=== PATIENT | male | born 1955 | race Caucasian/White ===

== ENCOUNTER 2018-05-09 01:41 | Emergency (ER) | payer MEDICAID ==
[~2018-05-09] VITALS: Ht 175.3 cm; Wt 113.6 kg
[~2018-05-09 01:41] MED LIST: CHLO25CA10 PO; NO HOME MEDS; ONDA8TAB13 PO; ZOF4T PO
[2018-05-09] MEDS ORDERED: meclizine 12.5mg tablet PO ONE (02:00)
[2018-05-09] MEDS ORDERED: LORazepam 2 mg/ml vial IV ONE (02:00)
[2018-05-09 02:53] LABS: BASOPHILS % (AUTO) 0.7 % (0-1); EOSINOPHILS # (AUTO) 0.2 X10'3 (0-0.9); EOSINOPHILS % (AUTO) 3.9 % (0-6); HEMATOCRIT 45.2 % (42.0-52.0); HEMOGLOBIN 15.4 g/dl (14.0-17.9); LYMPHOCYTES # (AUTO) 2.2 X10'3 (1.1-4.8); MEAN CORPUSCULAR HEMOGLOBIN 31.1 PG (27.0-31.0); MEAN CORPUSCULAR HGB CONC 34.1 % (33.0-36.5); MEAN CORPUSCULAR VOLUME 91.2 FL (78-98); MEAN PLATELET VOLUME 6.9 FL (7.4-10.4); MONOCYTES # (AUTO) 0.4 X10'3 (0-0.9); MONOCYTES % (AUTO) 7.7 % (2-12); NEUTROPHILS # (AUTO) 2.4 X10'3 (1.8-7.7); NEUTROPHILS % (AUTO) 45.7 % (42-75); PLATELET COUNT 218 X10'3 (140-440); RED BLOOD COUNT 4.96 X10'6 (4.70-6.10); RED CELL DISTRIBUTION WIDTH 12.9 % (11.5-14.5); WHITE BLOOD COUNT 5.2 X10'3 (4.5-11.0)
[2018-05-09 02:57] LABS: ALANINE AMINOTRANSFERASE 37 U/L (12-78); ALBUMIN 3.2 G/DL (3.4-5.0); ALKALINE PHOSPHATASE 63 IU/L (46-116); ANION GAP 9 (8-16); ASPARTATE AMINO TRANSFERASE 20 U/L (10-37); BILIRUBIN,TOTAL 0.5 MG/DL (0.1-1.0); BLOOD UREA NITROGEN 14 MG/DL (7-18); BUN/CREATININE RATIO 18.7 (5.4-32.0); CALCIUM 8.5 MG/DL (8.5-10.1); CHLORIDE 105 MMOL/L (99-107); CREATININE 0.75 MG/DL (0.60-1.10); GLUCOSE 137 MG/DL (70-104); POTASSIUM 3.8 MMOL/L (3.5-5.1); SODIUM 140 MMOL/L (135-145); TOTAL PROTEIN 6.4 G/DL (6.4-8.2); eGFR > 90 ML/MIN
[2018-05-09 03:01] LABS: PARTIAL THROMBOPLASTIN TIME 22 SECONDS (22-32); PROTHROMBIN TIME 10.6 SECONDS (9.0-12.0)
[2018-05-09] MEDS ORDERED: MECL-111 PO (03:32)
[2018-05-09 03:50] VITALS: BP 142/86
== END 2018-05-09 03:53 | disposition home or self-care (01) ==
LOC: ER 01:42
DX: R42 Dizziness and giddiness (principal); R11.2 Nausea with vomiting, unspecified; I10 Essential (primary) hypertension; G89.29 Other chronic pain; Z87.442 Personal history of urinary calculi; Z56.0 Unemployment, unspecified; Z98.890 Other specified postprocedural states
CPT/HCPCS: 36415; 70450; 71045; 80053; 84484; 85025; 85610; 85730; 93005; 96374; 99285; J2060; J8597

== ENCOUNTER 2019-01-12 08:39 | Inpatient (IN) | payer MEDICAID ==
[~2019-01-12] VITALS: Ht 175.3 cm; Wt 114.1 kg
[~2019-01-12 08:39] MED LIST changes: +MECL-111 PO
[2019-01-12] MEDS ORDERED: enoxaparin 100mg/ml syringe SUBCUT ONE (09:10)
[2019-01-12 09:14] LABS: BASOPHILS % (AUTO) 0.7 % (0-1); EOSINOPHILS # (AUTO) 0.2 X10'3 (0-0.9); EOSINOPHILS % (AUTO) 3.6 % (0-6); HEMATOCRIT 48.7 % (42.0-52.0); HEMOGLOBIN 16.8 g/dl (14.0-17.9); LYMPHOCYTES # (AUTO) 1.4 X10'3 (1.1-4.8); MEAN CORPUSCULAR HEMOGLOBIN 32.3 PG (27.0-31.0); MEAN CORPUSCULAR HGB CONC 34.5 g/dL (33.0-36.5); MEAN CORPUSCULAR VOLUME 93.5 FL (78-98); MONOCYTES # (AUTO) 0.6 X10'3 (0-0.9); NEUTROPHILS # (AUTO) 3.5 X10'3 (1.8-7.7); NEUTROPHILS % (AUTO) 60.7 % (42-75); PLATELET COUNT 213 X10'3 (140-440); RED BLOOD COUNT 5.21 X10'6 (4.70-6.10); RED CELL DISTRIBUTION WIDTH 13.6 % (11.5-14.5); WHITE BLOOD COUNT 5.8 X10'3 (4.5-11.0)
[2019-01-12] MEDS ORDERED: enoxaparin 30mg/0.3ml syringe SUBCUT ONE (09:15)
[2019-01-12] MEDS ORDERED: enoxaparin 80mg/0.8ml syringe SUBCUT ONE (09:15)
[2019-01-12 09:21] LABS: INR 1.1 INR; PARTIAL THROMBOPLASTIN TIME 26 SECONDS (22-32)
[2019-01-12 09:24] LABS: ALANINE AMINOTRANSFERASE 43 U/L (12-78); ALBUMIN 3.5 G/DL (3.4-5.0); ALBUMIN/GLOBULIN RATIO 0.9 (1.1-1.5); ALKALINE PHOSPHATASE 58 IU/L (46-116); ANION GAP 9 (8-16); ASPARTATE AMINO TRANSFERASE 32 U/L (10-37); BILIRUBIN,TOTAL 0.5 MG/DL (0.1-1.0); BLOOD UREA NITROGEN 10 MG/DL (7-18); BUN/CREATININE RATIO 10.6 (5.4-32.0); CHLORIDE 105 MMOL/L (99-107); CREATININE 0.94 MG/DL (0.60-1.10); GLUCOSE 114 MG/DL (70-104); POTASSIUM 4.2 MMOL/L (3.5-5.1); SODIUM 141 MMOL/L (135-145); TOTAL CARBON DIOXIDE 27.4 MMOL/L (24-32); TOTAL PROTEIN 7.3 G/DL (6.4-8.2); eGFR 82 ML/MIN
[2019-01-12] MEDS ORDERED: iohexol 350MG/ML 100ml bottle IV ONE (09:37)
--- NOTE | 2019-01-12 09:48 | NUR ---
PT TO CT VIA CHLOE
[2019-01-12 11:14] LABS: D-DIMER 10.75 MG/L FEU (0-0.50)
[2019-01-12] MEDS ORDERED: magnesium hydroxide 30ml (MOM) UD suspension PO PRN (11:25)
[2019-01-12] MEDS ORDERED: ondansetron/PF 4mg/2ml inj IV PRN (11:25)
[2019-01-12] MEDS ORDERED: acetaminophen 325mg tablet PO PRN (11:25)
[2019-01-12] MEDS ORDERED: mag hydrox/Alum hydrox/simeth 30ml oral suspension PO PRN (11:25)
[2019-01-12] MEDS ORDERED: morphine 2 MG/ML inj. syringe IV PRN (11:25)
--- NOTE | 2019-01-12 12:07 | NUR ---
Patient in room . I have received report from Sigrid CALDWELL and had the opportunity to ask questions and assume patient care.
[2019-01-12 13:33] VITALS: BP 148/91
[2019-01-12 15:00] VITALS: BP 139/96
[2019-01-12 18:00] VITALS: BP 151/94
[2019-01-12] MEDS: rivaroxaban 15mg tablet PO SCH (19:23)
[2019-01-12 22:00] VITALS: BP 125/88
[2019-01-13] VITALS (7 sets, daily range): BP systolic 118–154; BP diastolic 82–102
[2019-01-13 05:22] LABS: BASOPHILS # (AUTO) 0.1 X10'3 (0-0.2); EOSINOPHILS # (AUTO) 0.3 X10'3 (0-0.9); EOSINOPHILS % (AUTO) 5.8 % (0-6); HEMATOCRIT 45.3 % (42.0-52.0); HEMOGLOBIN 15.5 g/dl (14.0-17.9); LYMPHOCYTES # (AUTO) 1.6 X10'3 (1.1-4.8); LYMPHOCYTES % (AUTO) 28.1 % (21-51); MEAN CORPUSCULAR HEMOGLOBIN 32.1 PG (27.0-31.0); MEAN CORPUSCULAR HGB CONC 34.1 g/dL (33.0-36.5); MEAN CORPUSCULAR VOLUME 93.9 FL (78-98); MEAN PLATELET VOLUME 7.1 FL (7.4-10.4); MONOCYTES # (AUTO) 0.6 X10'3 (0-0.9); MONOCYTES % (AUTO) 10.6 % (2-12); NEUTROPHILS % (AUTO) 54.5 % (42-75); PLATELET COUNT 207 X10'3 (140-440); RED BLOOD COUNT 4.83 X10'6 (4.70-6.10); RED CELL DISTRIBUTION WIDTH 13.5 % (11.5-14.5); WHITE BLOOD COUNT 5.6 X10'3 (4.5-11.0)
[2019-01-13 05:36] LABS: ALBUMIN 2.9 G/DL (3.4-5.0); ANION GAP 8 (8-16); BLOOD UREA NITROGEN 14 MG/DL (7-18); BUN/CREATININE RATIO 16.3 (5.4-32.0); CALCIUM 8.6 MG/DL (8.5-10.1); CHLORIDE 106 MMOL/L (99-107); CREATININE 0.86 MG/DL (0.60-1.10); GLUCOSE 120 MG/DL (70-104); POTASSIUM 3.8 MMOL/L (3.5-5.1); SODIUM 141 MMOL/L (135-145); TOTAL CARBON DIOXIDE 27.4 MMOL/L (24-32); eGFR 90 ML/MIN
--- NOTE | 2019-01-13 06:20 | NUR ---
Problems reprioritized. Patient report given, questions answered & plan of care reviewed with PAULETTE Alarcon. Addendum: 01/13/19 at 0620 by Daphne Nair RN Amended: Links added.
--- NOTE | 2019-01-13 06:37 | NUR ---
Patient in room PCU 3014A. I have received report from PAULETTE Serna and had the opportunity to ask questions and assume patient care.
[2019-01-13] MEDS: rivaroxaban 15mg tablet PO SCH ×2 (07:30→19:07)
[2019-01-13] MEDS: HYDROcodone/acetaminophen 5mg/325mg tablet PO PRN ×2 (07:35→19:06)
--- NOTE | 2019-01-13 10:14 | NUR ---
Per Dr Clements, patient is able to ambulate around unit as tolerated with strict instructions to return to room as soon as he starts to feel winded or SOB
[2019-01-13] MEDS: morphine 2 MG/ML inj. syringe IV PRN ×3 (12:30→20:58)
--- NOTE | 2019-01-13 18:02 | NUR ---
Problems reprioritized. Patient report given, questions answered & plan of care reviewed with Sena CALDWELL. Patient is resting in bed and in no acute distress.
[2019-01-14] MEDS: morphine 2 MG/ML inj. syringe IV PRN ×2 (01:16→05:39)
[2019-01-14 03:00] VITALS: BP 149/85
[2019-01-14 06:00] VITALS: BP 146/84
[2019-01-14 06:08] LABS: BASOPHILS # (AUTO) 0.1 X10'3 (0-0.2); EOSINOPHILS # (AUTO) 0.3 X10'3 (0-0.9); EOSINOPHILS % (AUTO) 6.1 % (0-6); HEMATOCRIT 43.2 % (42.0-52.0); HEMOGLOBIN 14.8 g/dl (14.0-17.9); LYMPHOCYTES # (AUTO) 1.7 X10'3 (1.1-4.8); MEAN CORPUSCULAR HEMOGLOBIN 31.9 PG (27.0-31.0); MEAN CORPUSCULAR HGB CONC 34.1 g/dL (33.0-36.5); MEAN CORPUSCULAR VOLUME 93.5 FL (78-98); MEAN PLATELET VOLUME 7.3 FL (7.4-10.4); MONOCYTES # (AUTO) 0.5 X10'3 (0-0.9); MONOCYTES % (AUTO) 10.1 % (2-12); NEUTROPHILS # (AUTO) 2.7 X10'3 (1.8-7.7); NEUTROPHILS % (AUTO) 50.8 % (42-75); PLATELET COUNT 195 X10'3 (140-440); RED BLOOD COUNT 4.62 X10'6 (4.70-6.10); RED CELL DISTRIBUTION WIDTH 13.3 % (11.5-14.5); WHITE BLOOD COUNT 5.3 X10'3 (4.5-11.0)
--- NOTE | 2019-01-14 06:29 | NUR ---
Problems reprioritized. Patient report given, questions answered & plan of care reviewed with Emmy CALDWELL
--- NOTE | 2019-01-14 06:39 | NUR ---
Patient in room PCU 3025. I have received report from Sena CALDWELL and had the opportunity to ask questions and assume patient care. Patient awake in bed. O2 sat 95% on RA. In no acute distress. Will continue to monitor.
[2019-01-14 06:42] LABS: ALBUMIN 2.9 G/DL (3.4-5.0); ANION GAP 8 (8-16); BLOOD UREA NITROGEN 14 MG/DL (7-18); BUN/CREATININE RATIO 18.7 (5.4-32.0); CALCIUM 8.5 MG/DL (8.5-10.1); CHLORIDE 105 MMOL/L (99-107); CREATININE 0.75 MG/DL (0.60-1.10); GLUCOSE 105 MG/DL (70-104); POTASSIUM 3.9 MMOL/L (3.5-5.1); SODIUM 138 MMOL/L (135-145); TOTAL CARBON DIOXIDE 25.1 MMOL/L (24-32); eGFR > 90 ML/MIN
[2019-01-14] MEDS ORDERED: RIVA15TA PO (08:47)
[2019-01-14] MEDS: rivaroxaban 15mg tablet PO SCH (08:51)
[2019-01-14 11:00] VITALS: BP 128/85
--- NOTE | 2019-01-14 11:10 | NUR ---
Patient stable for discharger per MD orders. All discharge instructions reviewed with patient and all questions answered. New prescriptions delivered by [facility]. Patient educated on signs and symptoms of bleeding risk while on anticoagulation therapy. Patient to follow up with PCP in 2 weeks. Telemetry monitoring discontinued. PIV discontinued and cannula intact. All patient belongings and bedside delivery sent with patient in private vehicle to home. Patient wheeled to lobby by [facility].
[2019-01-15 09:28] LABS: ANTITHROMBIN ACTIVITY 128 % (75-135); ANTITHROMBIN ANTIGEN 69 % (72-124)
[2019-01-15 11:20] LABS: PROTEIN S, FREE 101 % (57-157); PROTEIN S, TOTAL 72 % (60-150)
== END 2019-01-14 11:09 | disposition home or self-care (01) | DRG 134 ==
LOC: ER 08:40 → EDBEDREQ 11:51 → PCU 3S 12:52
PROVIDERS: ADMIT Internal Medicine; ATTEND Internal Medicine
DX: I26.09 Other pulmonary embolism with acute cor pulmonale (principal); J96.01 Acute respiratory failure with hypoxia; G89.29 Other chronic pain; M54.9 Dorsalgia, unspecified; I10 Essential (primary) hypertension; K44.9 Diaphragmatic hernia without obstruction or gangrene; D68.59 Other primary thrombophilia; E66.9 Obesity, unspecified; Z68.37 Body mass index [BMI] 37.0-37.9, adult; Z79.01 Long term (current) use of anticoagulants; Z87.442 Personal history of urinary calculi
CPT/HCPCS: 36415; 71045; 71275; 80048; 80053; 81479; 83880; 83891; 83894; 83898; 84484; 85025; 85300; 85301; 85303; 85305; 85306; 85379; 85610; 85730; 86146; 86147; 87070; 93005; 93306; 96372; 99285; G0378; J1650; J2270; Q9967

== ENCOUNTER 2020-08-25 15:53 | Observation (INO) | payer MEDICAID ==
[~2020-08-25] VITALS: Ht 175.3 cm; Wt 98.9 kg
[~2020-08-25 15:53] MED LIST changes: -CHLO25CA10 PO; -MECL-111 PO; -NO HOME MEDS; -ONDA8TAB13 PO; +RIVA15TA PO; -ZOF4T PO
[2020-08-25 17:01] LABS: BASOPHILS % (AUTO) 1.3 % (0-1); EOSINOPHILS # (AUTO) 0.1 X10'3 (0-0.9); EOSINOPHILS % (AUTO) 1.6 % (0-6); HEMATOCRIT 45.9 % (42.0-52.0); HEMOGLOBIN 15.8 g/dl (14.0-17.9); LYMPHOCYTES # (AUTO) 1.3 X10'3 (1.1-4.8); LYMPHOCYTES % (AUTO) 35.4 % (21-51); MEAN CORPUSCULAR HEMOGLOBIN 35.1 PG (27.0-31.0); MEAN CORPUSCULAR HGB CONC 34.3 g/dL (33.0-36.5); MEAN CORPUSCULAR VOLUME 102.2 FL (78-98); MEAN PLATELET VOLUME 6.7 FL (7.4-10.4); MONOCYTES # (AUTO) 0.3 X10'3 (0-0.9); MONOCYTES % (AUTO) 7.3 % (2-12); NEUTROPHILS % (AUTO) 54.4 % (42-75); PLATELET COUNT 141 X10'3 (140-440); RED BLOOD COUNT 4.49 X10'6 (4.70-6.10); RED CELL DISTRIBUTION WIDTH 13.8 % (11.5-14.5); WHITE BLOOD COUNT 3.7 X10'3 (4.5-11.0)
[2020-08-25 17:09] LABS: D-DIMER 0.86 MG/L FEU (0-0.50); PARTIAL THROMBOPLASTIN TIME 24 SECONDS (22-32)
--- NOTE | 2020-08-25 17:19 | NUR ---
DR. PERDOMO AT BEDSIDE.
[2020-08-25 18:02] LABS: ALANINE AMINOTRANSFERASE 85 U/L (12-78); ALBUMIN 3.5 G/DL (3.4-5.0); ALKALINE PHOSPHATASE 127 IU/L (46-116); ANION GAP 16 (8-16); ASPARTATE AMINO TRANSFERASE 262 U/L (10-37); BILIRUBIN,TOTAL 1.3 MG/DL (0.1-1.0); BLOOD UREA NITROGEN 9 MG/DL (7-18); BUN/CREATININE RATIO 13.8 (5.4-32.0); CALCIUM 8.4 MG/DL (8.5-10.1); CHLORIDE 105 MMOL/L (99-107); CREATININE 0.65 MG/DL (0.60-1.10); GLUCOSE 99 MG/DL (70-104); POTASSIUM 3.4 MMOL/L (3.5-5.1); SODIUM 143 MMOL/L (135-145); TOTAL CARBON DIOXIDE 22.1 MMOL/L (24-32); eGFR > 90 ML/MIN
[2020-08-25] MEDS ORDERED: iohexol 350MG/ML 100ml bottle IV ONE (18:50)
[2020-08-25] MEDS ORDERED: magnesium Cl slow-release 64mg tablet PO PRN (20:40)
[2020-08-25] MEDS ORDERED: potassium Cl 20 mEq SR tablet PO PRN ×2 (20:40)
[2020-08-25] MEDS ORDERED: ondansetron/PF 4mg/2ml inj IV PRN (20:40)
[2020-08-25] MEDS ORDERED: magnesium hydroxide 30ml (MOM) UD suspension PO PRN (20:40)
[2020-08-25] MEDS ORDERED: nitroGLYCERIN 0.4mg SUBLingual tab SL PRN ×2 (20:40)
[2020-08-25] MEDS ORDERED: acetaminophen 325mg tablet PO PRN (20:40)
[2020-08-25] MEDS ORDERED: mag hydrox/Alum hydrox/simeth 30ml oral suspension PO PRN (20:40)
[2020-08-25] MEDS ORDERED: aminophylline 250mg/10ml inj. IV PRN (20:40)
[2020-08-25] MEDS ORDERED: magnesium 2GM in 50ml NS 50 ML IV PRN (20:40)
[2020-08-25] MEDS ORDERED: metoprolol tartrate 1mg/ml inj IV PRN (20:40)
[2020-08-25] MEDS ORDERED: magnesium 4gm in 100ml NS 100 ML IV PRN (20:40)
[2020-08-25] MEDS ORDERED: regadenoson 0.4mg/5ml syringe IV ONE (20:40)
[2020-08-25] MEDS ORDERED: potassium Cl 40MEQ/1/2NS 520ml 520 ML IV PRN ×2 (20:40)
[2020-08-25] MEDS ORDERED: aspirin 81mg tab.chew PO ONE (20:40)
[2020-08-25] MEDS ORDERED: temazepam 15mg capsule PO PRN (21:00)
[2020-08-25] MEDS: HYDROcodone/acetaminophen 5mg/325mg tablet PO PRN (21:00)
[2020-08-25] MEDS ORDERED: VENL25TA48 PO (21:37)
[2020-08-25] MEDS ORDERED: HYDR-3717 PO (21:37)
[2020-08-26] VITALS (8 sets, daily range): BP systolic 130–145; BP diastolic 83–95
--- NOTE | 2020-08-26 00:30 | NUR ---
ASSUMED CARE OF PT AFTER RECEIVING REPORT. PT IS RESTING QUIETLY WITH EYES CLOSED IN NO APPARENT DISTRESS.
--- NOTE | 2020-08-26 02:26 | NUR ---
PT COMPLAINING THAT THE GURNEY IS UNCOMFORTABLE BUT DENIES ANY OTHER COMPLAINTS. WILL WORK ON FINDING A MORE COMFORTABLE BED.
--- NOTE | 2020-08-26 03:30 | NUR ---
Pt placed on a hospital bed.
--- NOTE | 2020-08-26 04:15 | NUR ---
Pt now resting on a hospital bed, states he is much more comfortable. Remains on teletypesetter monitor.
--- NOTE | 2020-08-26 04:38 | NUR ---
Blood drawn for AM labs, pt remains resting in no apparent distress.
--- NOTE | 2020-08-26 07:54 | NUR ---
REDRAW LABS, SINCE MISSING, LAB SAYS SAMPLE WAS DILUTED. DID NOT RECEIVE INFO IN AM REPORT.
[2020-08-26] MEDS ORDERED: atorvastatin 10mg tablet PO SCH (08:00)
[2020-08-26] MEDS ORDERED: enoxaparin 100mg/ml syringe SQ SCH (08:00)
[2020-08-26] MEDS ORDERED: metoprolol tartrate 12.5mg (1/2 tablet) PO SCH (08:00)
[2020-08-26] MEDS ORDERED: aspirin 81mg tab.chew PO SCH (08:00)
[2020-08-26] MEDS ORDERED: venlafaxine 25mg tablet PO SCH (08:00)
[2020-08-26] MEDS ORDERED: K and/or MAG REPLACEMENT MC SCH (08:00)
[2020-08-26 08:08] LABS: BASOPHILS % (AUTO) 0.7 % (0-1); EOSINOPHILS % (AUTO) 1.1 % (0-6); HEMATOCRIT 43.6 % (42.0-52.0); HEMOGLOBIN 14.7 g/dl (14.0-17.9); LYMPHOCYTES # (AUTO) 0.7 X10'3 (1.1-4.8); LYMPHOCYTES % (AUTO) 21.6 % (21-51); MEAN CORPUSCULAR HGB CONC 33.8 g/dL (33.0-36.5); MEAN CORPUSCULAR VOLUME 103.4 FL (78-98); MEAN PLATELET VOLUME 6.6 FL (7.4-10.4); MONOCYTES # (AUTO) 0.3 X10'3 (0-0.9); MONOCYTES % (AUTO) 9.7 % (2-12); NEUTROPHILS # (AUTO) 2.2 X10'3 (1.8-7.7); NEUTROPHILS % (AUTO) 66.9 % (42-75); PLATELET COUNT 99 X10'3 (140-440); RED BLOOD COUNT 4.22 X10'6 (4.70-6.10); RED CELL DISTRIBUTION WIDTH 13.9 % (11.5-14.5); WHITE BLOOD COUNT 3.2 X10'3 (4.5-11.0)
[2020-08-26 08:22] LABS: ALANINE AMINOTRANSFERASE 81 U/L (12-78); ALBUMIN 3.2 G/DL (3.4-5.0); ALKALINE PHOSPHATASE 121 IU/L (46-116); ANION GAP 14 (8-16); ASPARTATE AMINO TRANSFERASE 234 U/L (10-37); BILIRUBIN,TOTAL 2.1 MG/DL (0.1-1.0); BLOOD UREA NITROGEN 10 MG/DL (7-18); BUN/CREATININE RATIO 17.5 (5.4-32.0); CALCIUM 7.8 MG/DL (8.5-10.1); CHLORIDE 104 MMOL/L (99-107); CREATININE 0.57 MG/DL (0.60-1.10); GLUCOSE 102 MG/DL (70-104); POTASSIUM 3.6 MMOL/L (3.5-5.1); SODIUM 142 MMOL/L (135-145); TOTAL CARBON DIOXIDE 24.2 MMOL/L (24-32); TOTAL PROTEIN 6.3 G/DL (6.4-8.2); eGFR > 90 ML/MIN
[2020-08-26 08:24] LABS: MAGNESIUM 1.9 MG/DL (1.5-2.4)
[2020-08-26] MEDS ORDERED: haloperidol lactate 5mg/ml inj IM PRN (08:35)
[2020-08-26] MEDS ORDERED: haloperidol 5mg tablet PO PRN (08:35)
[2020-08-26] MEDS ORDERED: LORazepam 2 mg/ml vial IV PRN (08:35)
[2020-08-26] MEDS ORDERED: LORazepam 2 mg/ml vial IV ONE (08:35)
--- NOTE | 2020-08-26 08:35 | NUR ---
SPOKE TO DR. CUMMINS ON TELEPHONE, PT DRINKS TWO BEERS DAILY AND TWO COCKTAILS AT NIGHT. PT IS VERY SHAKEY. BS 114. RECEIVED NEW ORDER FOR ATIVAN. HIOR SCAN HERE BUT WAITING ON BLOOD PRESSURE TO COME DOWN DIAYSTOLIC IS 160/111.
[2020-08-26 08:39] LABS: PLATELET ESTIMATE DECREASED; TOTAL CELLS COUNTED 100
[2020-08-26 08:40] LABS: STOMATOCYTES 1+
--- NOTE | 2020-08-26 09:19 | NUR ---
TC TO DR. CUMMINS RE: ELEVATED BLOOD PRESSURE WITH DIASTOLIC ABOVE 100. ORDER RECEIVED TO GIVE HYDRALAZINE 10 MG IV.
[2020-08-26] MEDS ORDERED: hydrALAZINE 20mg/ml inj. IV ONE (09:20)
[2020-08-26] MEDS ORDERED: thiamine inj. 100 MG in normal saline 100ml IV soln 100 ML IV ONE (10:00)
[2020-08-26] MEDS: HYDROcodone/acetaminophen 5mg/325mg tablet PO PRN (13:13)
--- NOTE | 2020-08-26 13:30 | NUR ---
Patient arrived to unit at approximately 1300. Alert and oriented. Ambulating to BR. Voiding without issue. Gait steady. C/O chest pain 11/02 and rib pain 03/04. Sedalia provided. Patient noted to be shaky. Will provide ativan. Patient ate 75% lunch. Oriented to room and call cheatham. VSS. Will continue to monitor.
[2020-08-26] MEDS ORDERED: RIVA15TA PO (16:28)
--- NOTE | 2020-08-26 17:25 | NUR ---
Patient discharged to home. Discharge instructions provided. Patient acknowledged understanding. Saline lock removed. Patient escorted to lobby via wheelchair with all belongings. No problems noted at that time.
[2020-08-27] MEDS ORDERED: thiamine inj. 100 MG in normal saline 100ml IV soln 100 ML IV SCH (08:00)
[2020-08-27] MEDS ORDERED: folic acid inj. 2 MG, thiamine inj. 100 MG, MVI, adult No.4 with vit. K 10 ML in dextro... IV SCH ×4 (08:00)
[2020-08-27] MEDS ORDERED: nitroGLYCERIN 0.4mg/hour patch TD SCH (08:00)
[2020-08-27] MEDS ORDERED: folic acid 1mg/0.2ml inj IV SCH (08:00)
[2020-08-28] MEDS ORDERED: LORazepam 1 MG tablet PO PRN (08:35)
[2020-08-28] MEDS ORDERED: LORazepam 2 mg/ml vial IV PRN (08:35)
== END 2020-08-26 17:27 | disposition home or self-care (01) ==
LOC: ER 15:54 → ED HOLD 20:36 → PCU 3S 08-26 11:34
PROVIDERS: ADMIT Family Medicine; ATTEND Family Medicine
DX: R07.89 Other chest pain (principal); Z20.828 Contact with and (suspected) exposure to other viral communicable diseases; R06.00 Dyspnea, unspecified; I11.9 Hypertensive heart disease without heart failure; G89.29 Other chronic pain; M54.9 Dorsalgia, unspecified; F41.9 Anxiety disorder, unspecified; F12.90 Cannabis use, unspecified, uncomplicated; Z87.442 Personal history of urinary calculi; Z86.711 Personal history of pulmonary embolism; Z79.01 Long term (current) use of anticoagulants; Z79.899 Other long term (current) drug therapy
CPT/HCPCS: 36415; 71045; 71275; 78452; 80053; 82948; 83735; 84484; 85007; 85025; 85379; 85610; 85730; 87635; 93005; 93017; 96365; 96372; 96375; 96376; 99285; A9500; C9803; G0378; J0360; J2060; J2785; J3411; Q9967; J1650

== ENCOUNTER 2020-11-27 18:07 | Inpatient (IN) | payer MEDICAID ==
[~2020-11-27] VITALS: Ht 175.3 cm; Wt 105.9 kg
[~2020-11-27 18:07] MED LIST changes: +HYDR-3717 PO; +VENL25TA48 PO
[2020-11-27 19:09] LABS: BASOPHILS # (AUTO) 0.1 X10'3 (0-0.2); MEAN CORPUSCULAR HEMOGLOBIN 36.1 PG (27.0-31.0); MEAN PLATELET VOLUME 8.1 FL (7.4-10.4)
[2020-11-27 19:11] LABS: BASOPHILS % (AUTO) 0.7 % (0-1); EOSINOPHILS % (AUTO) 0.2 % (0-6); HEMATOCRIT 45.8 % (42.0-52.0); HEMOGLOBIN 15.6 g/dl (14.0-17.9); LYMPHOCYTES # (AUTO) 0.9 X10'3 (1.1-4.8); LYMPHOCYTES % (AUTO) 10.3 % (21-51); MONOCYTES # (AUTO) 1.5 X10'3 (0-0.9); MONOCYTES % (AUTO) 17.1 % (2-12); NEUTROPHILS # (AUTO) 6.2 X10'3 (1.8-7.7); NEUTROPHILS % (AUTO) 71.7 % (42-75); RED BLOOD COUNT 4.32 X10'6 (4.70-6.10); RED CELL DISTRIBUTION WIDTH 15.9 % (11.5-14.5); WHITE BLOOD COUNT 8.7 X10'3 (4.5-11.0)
[2020-11-27 19:16] LABS: ALANINE AMINOTRANSFERASE 80 U/L (12-78); ALBUMIN 2.4 G/DL (3.4-5.0); ALKALINE PHOSPHATASE 200 IU/L (46-116); ANION GAP 14 (8-16); BILIRUBIN,TOTAL 9.4 MG/DL (0.1-1.0); BLOOD UREA NITROGEN 12 MG/DL (7-18); BUN/CREATININE RATIO 16.7 (5.4-32.0); CALCIUM 8.1 MG/DL (8.5-10.1); CHLORIDE 94 MMOL/L (99-107); CREATININE 0.72 MG/DL (0.60-1.10); GLUCOSE 109 MG/DL (70-104); SODIUM 133 MMOL/L (135-145); TOTAL CARBON DIOXIDE 24.6 MMOL/L (24-32); eGFR > 90 ML/MIN
[2020-11-27 19:23] LABS: ALBUMIN/GLOBULIN RATIO 0.6 (1.1-1.5); ASPARTATE AMINO TRANSFERASE 362 U/L (10-37); POTASSIUM 4.6 MMOL/L (3.5-5.1); TOTAL PROTEIN 6.6 G/DL (6.4-8.2)
[2020-11-27 19:44] LABS: PLATELET COUNT 103 X10'3 (140-440)
[2020-11-27 19:51] LABS: PLATELET ESTIMATE DECREASED; TOTAL CELLS COUNTED 100
[2020-11-27 19:53] LABS: TARGET CELLS FEW
[2020-11-27] MEDS ORDERED: LORazepam 2 mg/ml vial IV ONE (22:50)
[2020-11-27] MEDS ORDERED: iohexol 350MG/ML 100ml bottle IV ONE (23:19)
[2020-11-28] MEDS ORDERED: NO HOME MEDS (00:57)
--- NOTE | 2020-11-28 01:00 | NUR ---
HOSPITALIST AT BEDSIDE FOR ADMIT
[2020-11-28 01:19] LABS: ALBUMIN,BODY FLUID < 0.6 G/DL
[2020-11-28] MEDS ORDERED: mag hydrox/Alum hydrox/simeth 30ml oral suspension PO PRN (01:25)
[2020-11-28] MEDS ORDERED: haloperidol lactate 5mg/ml inj IM PRN (01:25)
[2020-11-28] MEDS ORDERED: haloperidol 5mg tablet PO PRN (01:25)
[2020-11-28] MEDS ORDERED: bisacodyl 10mg suppository rectal RC PRN (01:25)
[2020-11-28] MEDS ORDERED: diphenhydrAMINE 50 mg/ml inj IV PRN (01:25)
[2020-11-28] MEDS ORDERED: acetaminophen 650mg rectal suppository RC PRN (01:25)
[2020-11-28] MEDS ORDERED: thiamine 100mg/ml 2ml inj. IV ONE (01:25)
[2020-11-28] MEDS ORDERED: acetaminophen 325mg tablet PO PRN ×2 (01:25)
[2020-11-28] MEDS ORDERED: ondansetron/PF 4mg/2ml inj IV PRN (01:25)
[2020-11-28] MEDS ORDERED: diphenhydrAMINE 25mg capsule PO PRN (01:25)
[2020-11-28] MEDS ORDERED: morphine 2 MG/ML inj. syringe IV PRN (01:25)
[2020-11-28] MEDS ORDERED: dextrose 50%-water 50ml dispensing syringe IV PRN (01:25)
[2020-11-28] MEDS ORDERED: magnesium hydroxide 30ml (MOM) UD suspension PO PRN (01:25)
[2020-11-28 02:24] LABS: ETHANOL 0.183 GM/DL (0.0-0.010); LIPASE 391 U/L (73-393); MAGNESIUM 2.1 MG/DL (1.5-2.4)
[2020-11-28 02:27] LABS: CREATINE KINASE 94 U/L (39-308); PHOSPHORUS 3.2 MG/DL (2.3-4.5)
[2020-11-28 04:40] LABS: BFAPPEAR CLEAR; BFCOLOR YELLOW; BFVOLUME 65 ML
[2020-11-28 04:41] LABS: BF MESOTHELIAL CELLS MODERATE; BF RBC COUNT 38 /CU MM; BF WBC COUNT 37 /CU MM (0-1000); LYMPHOCYTES,BODY FLUID 10 %; MONOCYTES,BODY FLUID 4 %; NEUTROPHILS,BODY FLUID 3 %
[2020-11-28 06:03] LABS: URINE AMPHETAMINE SCREEN NEGATIVE (Neg); URINE BARBITUATE SCREEN NEGATIVE (Neg); URINE BENZODIAZEPINES SCREEN NEGATIVE (Neg); URINE CANNABINOID SCREEN NEGATIVE (Neg); URINE COCAINE SCREEN NEGATIVE (Neg); URINE METHADONE SCREEN NEGATIVE (Neg); URINE OPIATE SCREEN NEGATIVE (Neg); URINE PHENCYCLIDINE SCREEN NEGATIVE (Neg)
[2020-11-28] MEDS: LORazepam 2 mg/ml vial IV PRN ×7 (06:03→23:30)
--- NOTE | 2020-11-28 06:31 | NUR ---
Pt resting with eyes closed, effortless respirations observed.
[2020-11-28 07:51] VITALS: BP 142/92
[2020-11-28] MEDS: pantoprazole 40mg Tablet.DR PO SCH (08:31)
[2020-11-28] MEDS: docusate sod 100mg capsule PO SCH ×2 (08:31→21:22)
[2020-11-28] MEDS: lisinopril 10 MG tablet PO SCH (08:32)
[2020-11-28] MEDS: furosemide 20 MG/2 ML vial IV SCH ×2 (08:37→21:22)
[2020-11-28 12:38] VITALS: BP 92/57
[2020-11-28 17:50] VITALS: BP 148/72
[2020-11-28 18:00] VITALS: BP 111/73
--- NOTE | 2020-11-28 18:29 | NUR ---
Patient in room MED 314. I have received report from PAUELTTE Adams and had the opportunity to ask questions and assume patient care.
--- NOTE | 2020-11-28 18:30 | NUR ---
Problems reprioritized. Patient report given, questions answered & plan of care reviewed with NOC.
[2020-11-28 22:00] VITALS: BP 100/70
[2020-11-29 02:00] VITALS: BP 102/71
[2020-11-29 06:06] LABS: BASOPHILS # (AUTO) 0.1 X10'3 (0-0.2); EOSINOPHILS % (AUTO) 0.8 % (0-6); HEMATOCRIT 40.1 % (42.0-52.0); HEMOGLOBIN 13.6 g/dl (14.0-17.9); LYMPHOCYTES % (AUTO) 18.4 % (21-51); MEAN CORPUSCULAR HEMOGLOBIN 35.8 PG (27.0-31.0); MEAN CORPUSCULAR VOLUME 105.1 FL (78-98); MEAN PLATELET VOLUME 7.9 FL (7.4-10.4); MONOCYTES # (AUTO) 0.9 X10'3 (0-0.9); MONOCYTES % (AUTO) 16.7 % (2-12); NEUTROPHILS # (AUTO) 3.5 X10'3 (1.8-7.7); NEUTROPHILS % (AUTO) 63.1 % (42-75); PLATELET COUNT 112 X10'3 (140-440); RED BLOOD COUNT 3.82 X10'6 (4.70-6.10); RED CELL DISTRIBUTION WIDTH 16.3 % (11.5-14.5); WHITE BLOOD COUNT 5.6 X10'3 (4.5-11.0)
[2020-11-29 06:12] LABS: ALANINE AMINOTRANSFERASE 61 U/L (12-78); ALBUMIN 1.9 G/DL (3.4-5.0); ALKALINE PHOSPHATASE 156 IU/L (46-116); ANION GAP 6 (8-16); ASPARTATE AMINO TRANSFERASE 263 U/L (10-37); BILIRUBIN,TOTAL 10.3 MG/DL (0.1-1.0); BLOOD UREA NITROGEN 21 MG/DL (7-18); BUN/CREATININE RATIO 15.3 (5.4-32.0); CALCIUM 7.5 MG/DL (8.5-10.1); CHLORIDE 98 MMOL/L (99-107); CREATININE 1.37 MG/DL (0.60-1.10); GLUCOSE 98 MG/DL (70-104); HDL CHOLESTEROL 11 MG/DL (35-60); LDL CHOLESTEROL 51 MG/DL (50-100); SODIUM 134 MMOL/L (135-145); TOTAL CARBON DIOXIDE 29.8 MMOL/L (24-32); eGFR 52 ML/MIN
[2020-11-29 06:13] LABS: ALBUMIN/GLOBULIN RATIO 0.5 (1.1-1.5); CHOL/HDL RATIO 6.2 (0.00-4.99); CHOLESTEROL 68 MG/DL (0-200); POTASSIUM 3.5 MMOL/L (3.5-5.1); TOTAL PROTEIN 5.4 G/DL (6.4-8.2); TRIGLYCERIDES 104 MG/DL (20-135)
[2020-11-29] MEDS: LORazepam 2 mg/ml vial IV PRN ×6 (06:16→21:28)
[2020-11-29 06:30] VITALS: BP 111/71
[2020-11-29 06:48] LABS: LARGE PLATELETS FEW; PLATELET ESTIMATE DECREASED; TOTAL CELLS COUNTED 100
[2020-11-29 06:49] LABS: ANISOCYTOSIS 1+; TARGET CELLS FEW
--- NOTE | 2020-11-29 06:57 | NUR ---
Patient in room MED 314. I have received report from LACHO and had the opportunity to ask questions and assume patient care.
[2020-11-29] MEDS: docusate sod 100mg capsule PO SCH ×2 (08:01→21:28)
[2020-11-29] MEDS: pantoprazole 40mg Tablet.DR PO SCH (08:02)
[2020-11-29] MEDS: lisinopril 10 MG tablet PO SCH (08:02)
[2020-11-29] MEDS: furosemide 20 MG/2 ML vial IV SCH ×2 (08:02→21:28)
[2020-11-29 11:00] VITALS: BP 107/71
[2020-11-29 15:00] VITALS: BP 97/66
--- NOTE | 2020-11-29 15:53 | NUR ---
Paged Dr Currie "PAGER ID: [phone] MESSAGE: [phone] Denys Johns patient looks like he might have conjunctivitis. Goopy, reddened eyes..."
[2020-11-29 18:00] VITALS: BP 95/61
--- NOTE | 2020-11-29 18:11 | NUR ---
Problems reprioritized. Patient report given, questions answered & plan of care reviewed with
--- NOTE | 2020-11-29 18:14 | NUR ---
Patient in room MED 314. I have received report from PAULETTE Hood and had the opportunity to ask questions and assume patient care.
[2020-11-29 22:00] VITALS: BP 96/66
[2020-11-30] VITALS (7 sets, daily range): BP systolic 87–107; BP diastolic 55–68
[2020-11-30] MEDS ORDERED: LORazepam 2 mg/ml vial IV PRN ×2 (01:25→10:50)
[2020-11-30] MEDS: LORazepam 1 MG tablet PO PRN ×2 (02:20→09:22)
[2020-11-30 05:57] LABS: BASOPHILS # (AUTO) 0.1 X10'3 (0-0.2); EOSINOPHILS # (AUTO) 0.1 X10'3 (0-0.9); HEMOGLOBIN 13.6 g/dl (14.0-17.9); MEAN PLATELET VOLUME 8.1 FL (7.4-10.4); RED BLOOD COUNT 3.73 X10'6 (4.70-6.10); WHITE BLOOD COUNT 4.9 X10'3 (4.5-11.0)
[2020-11-30 06:02] LABS: BASOPHILS % (AUTO) 1.2 % (0-1); EOSINOPHILS % (AUTO) 2.6 % (0-6); HEMATOCRIT 39.4 % (42.0-52.0); LYMPHOCYTES % (AUTO) 20.2 % (21-51); MEAN CORPUSCULAR HEMOGLOBIN 36.6 PG (27.0-31.0); MEAN CORPUSCULAR HGB CONC 34.7 g/dL (33.0-36.5); MEAN CORPUSCULAR VOLUME 105.7 FL (78-98); MONOCYTES # (AUTO) 0.7 X10'3 (0-0.9); PLATELET COUNT 112 X10'3 (140-440)
[2020-11-30 06:14] LABS: ALANINE AMINOTRANSFERASE 52 U/L (12-78); ALBUMIN 1.7 G/DL (3.4-5.0); ALBUMIN/GLOBULIN RATIO 0.5 (1.1-1.5); ALKALINE PHOSPHATASE 164 IU/L (46-116); ANION GAP 9 (8-16); ASPARTATE AMINO TRANSFERASE 208 U/L (10-37); BILIRUBIN,TOTAL 9.1 MG/DL (0.1-1.0); BLOOD UREA NITROGEN 27 MG/DL (7-18); BUN/CREATININE RATIO 18.9 (5.4-32.0); CALCIUM 7.5 MG/DL (8.5-10.1); CHLORIDE 97 MMOL/L (99-107); CREATININE 1.43 MG/DL (0.60-1.10); GLUCOSE 85 MG/DL (70-104); POTASSIUM 3.6 MMOL/L (3.5-5.1); SODIUM 136 MMOL/L (135-145); TOTAL CARBON DIOXIDE 30.1 MMOL/L (24-32); TOTAL PROTEIN 5.1 G/DL (6.4-8.2); eGFR 50 ML/MIN
[2020-11-30] MEDS: docusate sod 100mg capsule PO SCH ×2 (09:16→20:31)
[2020-11-30] MEDS: pantoprazole 40mg Tablet.DR PO SCH (09:16)
[2020-11-30] MEDS: furosemide 20 MG/2 ML vial IV SCH ×2 (09:16→20:31)
[2020-11-30] MEDS: lisinopril 10 MG tablet PO SCH (09:17)
[2020-11-30] MEDS ORDERED: thiamine inj. 100 MG in normal saline 100ml IV soln 100 ML IV ONE (10:50)
[2020-11-30] MEDS ORDERED: haloperidol lactate 5mg/ml inj IM PRN (10:50)
[2020-11-30] MEDS ORDERED: LORazepam 1 MG tablet PO PRN (10:50)
[2020-11-30] MEDS ORDERED: haloperidol 5mg tablet PO PRN (10:50)
[2020-11-30 16:30] LABS: GLUCOSE,BODY FLUID 126 MG/DL; LDH,BODY FLUID 68 U/L
[2020-11-30 16:39] LABS: TOTAL PROTEIN,BODY FLUID < 2.0 G/DL
[2020-11-30 16:53] LABS: BFAPPEAR HAZY; LYMPHOCYTES,BODY FLUID 51 %; MONOCYTES,BODY FLUID 45 %; NEUTROPHILS,BODY FLUID 4 %
[2020-11-30 16:54] LABS: BF MESOTHELIAL CELLS MODERATE; BF RBC COUNT 120 /CU MM; BF WBC COUNT 73 /CU MM (0-1000); BFCOLOR YELLOW; BFVOLUME 60 ML
[2020-11-30] MEDS: lactulose 20gm/30ml cup PO SCH (20:31)
[2020-11-30] MEDS: morphine 2 MG/ML inj. syringe IV PRN (20:32)
[2020-12-01 02:00] VITALS: BP 102/68
[2020-12-01] MEDS: lactulose 20gm/30ml cup PO SCH ×4 (04:28→19:20)
[2020-12-01 06:07] LABS: BASOPHILS % (AUTO) 0.5 % (0-1); EOSINOPHILS # (AUTO) 0.1 X10'3 (0-0.9); EOSINOPHILS % (AUTO) 2.8 % (0-6); HEMATOCRIT 41.3 % (42.0-52.0); HEMOGLOBIN 13.9 g/dl (14.0-17.9); LYMPHOCYTES # (AUTO) 1.1 X10'3 (1.1-4.8); LYMPHOCYTES % (AUTO) 22.3 % (21-51); MEAN CORPUSCULAR HEMOGLOBIN 36.4 PG (27.0-31.0); MEAN CORPUSCULAR HGB CONC 33.7 g/dL (33.0-36.5); MEAN CORPUSCULAR VOLUME 107.9 FL (78-98); MEAN PLATELET VOLUME 8.3 FL (7.4-10.4); MONOCYTES # (AUTO) 0.8 X10'3 (0-0.9); MONOCYTES % (AUTO) 15.8 % (2-12); NEUTROPHILS # (AUTO) 2.9 X10'3 (1.8-7.7); NEUTROPHILS % (AUTO) 58.6 % (42-75); PLATELET COUNT 113 X10'3 (140-440); RED BLOOD COUNT 3.83 X10'6 (4.70-6.10); RED CELL DISTRIBUTION WIDTH 16.3 % (11.5-14.5); WHITE BLOOD COUNT 4.9 X10'3 (4.5-11.0)
[2020-12-01 06:24] LABS: ALANINE AMINOTRANSFERASE 47 U/L (12-78); ALBUMIN 1.7 G/DL (3.4-5.0); ALKALINE PHOSPHATASE 146 IU/L (46-116); ANION GAP 7 (8-16); ASPARTATE AMINO TRANSFERASE 176 U/L (10-37); BILIRUBIN,TOTAL 9.2 MG/DL (0.1-1.0); BLOOD UREA NITROGEN 33 MG/DL (7-18); BUN/CREATININE RATIO 24.1 (5.4-32.0); CALCIUM 7.2 MG/DL (8.5-10.1); CHLORIDE 101 MMOL/L (99-107); CREATININE 1.37 MG/DL (0.60-1.10); GLUCOSE 83 MG/DL (70-104); SODIUM 138 MMOL/L (135-145); TOTAL CARBON DIOXIDE 29.6 MMOL/L (24-32); eGFR 52 ML/MIN
[2020-12-01 06:28] LABS: ALBUMIN/GLOBULIN RATIO 0.5 (1.1-1.5); POTASSIUM 3.4 MMOL/L (3.5-5.1); TOTAL PROTEIN 5.1 G/DL (6.4-8.2)
[2020-12-01 07:34] VITALS: BP 98/55
[2020-12-01] MEDS: lisinopril 10 MG tablet PO SCH (07:52)
[2020-12-01] MEDS: thiamine 100mg tablet PO SCH (07:58)
[2020-12-01] MEDS: multivitamins, therapeutics tablet PO SCH (07:58)
[2020-12-01] MEDS: furosemide 20 MG/2 ML vial IV SCH (07:58)
[2020-12-01] MEDS: docusate sod 100mg capsule PO SCH ×2 (07:58→19:30)
[2020-12-01] MEDS: folic acid 1mg tablet PO SCH (07:58)
[2020-12-01] MEDS: pantoprazole 40mg Tablet.DR PO SCH (07:58)
--- NOTE | 2020-12-01 09:52 | NUR ---
PAGER ID: [phone] MESSAGE: RE: Denys Mooney 314 K+ 3.4 Do you want to start replacement protocol? Jr CALDWELL [phone]
[2020-12-01] MEDS ORDERED: magnesium Cl slow-release 64mg tablet PO PRN (09:55)
[2020-12-01] MEDS ORDERED: magnesium 4gm in 100ml NS 100 ML IV PRN (09:55)
[2020-12-01] MEDS ORDERED: magnesium 2GM in 50ml NS 50 ML IV PRN (09:55)
[2020-12-01] MEDS ORDERED: potassium Cl 40MEQ/1/2NS 520ml 520 ML IV PRN ×2 (09:55)
[2020-12-01] MEDS ORDERED: potassium Cl 20 mEq SR tablet PO PRN (09:55)
[2020-12-01] MEDS: potassium Cl 20 mEq SR tablet PO PRN ×3 (10:39→19:20)
[2020-12-01 10:48] VITALS: BP 108/63
[2020-12-01 14:58] VITALS: BP 98/64
[2020-12-01 18:00] VITALS: BP 96/61
--- NOTE | 2020-12-01 18:33 | NUR ---
Patient in room MED 314. I have received report from Jr CALDWELL and had the opportunity to ask questions and assume patient care.
[2020-12-01] MEDS: LORazepam 1 MG tablet PO PRN (19:20)
[2020-12-01] MEDS: morphine 2 MG/ML inj. syringe IV PRN ×2 (19:20→23:26)
[2020-12-01] MEDS: K and/or MAG REPLACEMENT MC SCH (19:28)
[2020-12-01 22:00] VITALS: BP 94/57
[2020-12-01] MEDS: temazepam 15mg capsule PO PRN (23:25)
[2020-12-02] VITALS (8 sets, daily range): BP systolic 100–125; BP diastolic 53–86
[2020-12-02] MEDS ORDERED: LORazepam 1 MG tablet PO PRN (01:25)
[2020-12-02] MEDS ORDERED: LORazepam 2 mg/ml vial IV PRN (01:25)
[2020-12-02] MEDS: lactulose 20gm/30ml cup PO SCH ×3 (02:46→17:07)
--- NOTE | 2020-12-02 06:21 | NUR ---
Problems reprioritized. Patient report given, questions answered & plan of care reviewed with Alicja CALDWELL.
[2020-12-02 07:06] LABS: BASOPHILS # (AUTO) 0.1 X10'3 (0-0.2); BASOPHILS % (AUTO) 1.3 % (0-1); EOSINOPHILS # (AUTO) 0.2 X10'3 (0-0.9); HEMATOCRIT 42.4 % (42.0-52.0); HEMOGLOBIN 14.4 g/dl (14.0-17.9); LYMPHOCYTES # (AUTO) 1.1 X10'3 (1.1-4.8); MEAN CORPUSCULAR HEMOGLOBIN 36.4 PG (27.0-31.0); MEAN CORPUSCULAR HGB CONC 33.8 g/dL (33.0-36.5); MEAN CORPUSCULAR VOLUME 107.5 FL (78-98); MEAN PLATELET VOLUME 8.3 FL (7.4-10.4); MONOCYTES % (AUTO) 18.8 % (2-12); NEUTROPHILS # (AUTO) 3.2 X10'3 (1.8-7.7); NEUTROPHILS % (AUTO) 57.9 % (42-75); PLATELET COUNT 125 X10'3 (140-440); RED BLOOD COUNT 3.94 X10'6 (4.70-6.10); RED CELL DISTRIBUTION WIDTH 16.5 % (11.5-14.5); WHITE BLOOD COUNT 5.6 X10'3 (4.5-11.0)
[2020-12-02] MEDS: levoTHYROXINE 25mcg tablet PO SCH (07:33)
[2020-12-02] MEDS: lisinopril 10 MG tablet PO SCH (07:33)
[2020-12-02] MEDS: folic acid 1mg tablet PO SCH (07:33)
[2020-12-02] MEDS: thiamine 100mg tablet PO SCH (07:33)
[2020-12-02] MEDS: multivitamins, therapeutics tablet PO SCH (07:33)
[2020-12-02] MEDS: pantoprazole 40mg Tablet.DR PO SCH (07:33)
[2020-12-02 07:54] LABS: ALBUMIN 1.6 G/DL (3.4-5.0); ALKALINE PHOSPHATASE 144 IU/L (46-116); BILIRUBIN,TOTAL 7.6 MG/DL (0.1-1.0); SODIUM 139 MMOL/L (135-145)
[2020-12-02] MEDS: docusate sod 100mg capsule PO SCH ×2 (08:00→20:00)
[2020-12-02 08:10] LABS: PLATELET ESTIMATE DECREASED; TOTAL CELLS COUNTED 100
[2020-12-02 08:11] LABS: ANISOCYTOSIS 1+; POLYCHROMASIA FEW; TARGET CELLS FEW
[2020-12-02 08:16] LABS: ALANINE AMINOTRANSFERASE 46 U/L (12-78); ANION GAP 10 (8-16); BLOOD UREA NITROGEN 33 MG/DL (7-18); BUN/CREATININE RATIO 29.5 (5.4-32.0); CALCIUM 7.9 MG/DL (8.5-10.1); CHLORIDE 102 MMOL/L (99-107); CREATININE 1.12 MG/DL (0.60-1.10); GLUCOSE 89 MG/DL (70-104); TOTAL CARBON DIOXIDE 27.3 MMOL/L (24-32); eGFR 66 ML/MIN
[2020-12-02 08:20] LABS: ALBUMIN/GLOBULIN RATIO 0.4 (1.1-1.5); ASPARTATE AMINO TRANSFERASE 145 U/L (10-37); POTASSIUM 3.9 MMOL/L (3.5-5.1); TOTAL PROTEIN 5.2 G/DL (6.4-8.2)
--- NOTE | 2020-12-02 08:41 | NUR ---
Initial: Pt presented with c/o abdominal pain with reported 28 lb wt gain in 10 days localized to his abdomen. Pt with EtOH hx and actively drinking, reporting 750 mL vodka intake/day. Pt admit for ascites and cirrhosis of liver with portal HTN secondary to alcoholism. Pt s/p paracentesis 11/30 with 2.2L fluid removed per report. Pt currently on EtOH w/d protocol receiving routine Thiamine, Folic acid, and MVI. Pt documented as A/O x 2 this morning though A/O x 1 throughout most of LOS. Currently on a 2 g Na restricted diet with 1L fluid restriction per MD and eating well, documented with mostly 75-100% PO intake. LBM 12/02, receiving routine bowel care. No GI symptoms documented at this time other than abdominal pain though likely to have diarrhea secondary to routine Lactulose. No nutrition intervention implemented at this time. Will continue to follow. Recommendations: 1) Continue 2 g Na restricted diet with 1L fluid restriction per MD 2) Monitor need for additional protein 3) Continue routine Thiamine, Folic acid, and MVI for EtOH, elevated MCV 4) Routine bowel care 5) Scaled weights per rx Addendum: 12/02/20 at [address] Amended: Links added.
[2020-12-02] MEDS: K and/or MAG REPLACEMENT MC SCH ×2 (08:50→20:00)
--- NOTE | 2020-12-02 12:07 | NUR ---
PAGER ID: [phone] MESSAGE: [phone] pt Vinicio. May I place a rectal tube? Pt continues to be incontinent of stool and taking Lactulose q8. Non-ambulatory and do not want him to continue having loose BMs in bed. - [phone]
--- NOTE | 2020-12-02 15:05 | NUR ---
Patient in room MED 314. I have received report from Alicja Bay RN and had the opportunity to ask questions and assume patient care.
[2020-12-02] MEDS: HYDROcodone/acetaminophen 5mg/325mg tablet PO PRN (18:33)
--- NOTE | 2020-12-02 22:01 | NUR ---
PAGER ID: [phone] MESSAGE: [phone]- PATITO ERNANDEZ-CLAUDIO STAT CT, LABS, PLEASE CALL ACC [phone] [facility], THX [phone]
--- NOTE | 2020-12-02 22:15 | NUR ---
PATIENT TAKEN TO CT IN WC
--- NOTE | 2020-12-02 22:21 | NUR ---
2214-CALLED PCU FRONT END TECHNICIAN JEAN PATIENT FELL ON FLOOR; PATIENT WAS ATTEMPTING TO AMBULATE TO AMBULATE;PATIENT HAS RECTAL TUBE, CONDOM CATHETER IN USE-PATIENT ADMITTED FOR HEPATIC ENCEPHALOPATHY, AMMONIA LEVEL 52 CURRENTLY. VITAL SIGNS TAKEN, CALLED, STAT HEAD CT ORDERED, PATIENT TAKEN DOWN TO CT FOR RADIOGRAPHIC EVALUATION, NO IV CONTRAST ORDERED. FRONT END TECHNICIAN JEAN NOTIFIED ON PCU, VS 98.3, HR 104, BP 123/73 RR 13 Addendum: 12/02/20 at 2315 by Sharon Curtis RN PATIENT HAD TABS ALARM ON BED, DID NOT ALARM; BED ALARM NOT WORKING, SWAPPED BED FOR WORKING ALARM PRIOR TO PATIENT RETURN FROM CT.
--- NOTE | 2020-12-02 22:35 | NUR ---
PATIENT RETURNED FROM CT, ASSISTED INTO BED, REINSERTED NEW RECTAL TUBE, VS TAKEN AGAIN, SKIN TEAR ON RIGHT ARM NOTED, PIC IN CHART, PAIN MEDS FIVEN FOR HEAD PAIN. RHEA CALDWELL, BED SWAPPED OUT FOR WORKING BED ALARM. Addendum: 12/02/20 at 2318 by Sharon Curtis RN RECTAL TUBE REINSERTED, SKIN TEAR PIC TAKEN, DRESSING TO SKIN TEAR RIGHT ARM. AWAITNG CT RESULTS TO CALL TO . INCIDENT REPORT COMPETED. TRISTEN
[2020-12-03] VITALS (11 sets, daily range): BP systolic 99–124; BP diastolic 68–84
[2020-12-03] MEDS: lactulose 20gm/30ml cup PO SCH ×2 (00:46→20:23)
--- NOTE | 2020-12-03 05:50 | NUR ---
ATTEMPTED TO REACH NEXT OF KIN OLU REGARDING PATIENT FALL-VM TO CALL BACK LEFT FOR FAMILY MEMBER. AWAITING RESPONSE FROM FAMILY RHEA
--- NOTE | 2020-12-03 06:34 | NUR ---
Problems reprioritized. Patient report given, questions answered & plan of care reviewed with CHEMA CALDWELL.
[2020-12-03 07:24] LABS: BASOPHILS # (AUTO) 0.1 X10'3 (0-0.2); BASOPHILS % (AUTO) 1.3 % (0-1); EOSINOPHILS # (AUTO) 0.1 X10'3 (0-0.9); EOSINOPHILS % (AUTO) 2.3 % (0-6); HEMATOCRIT 40.4 % (42.0-52.0); HEMOGLOBIN 13.9 g/dl (14.0-17.9); LYMPHOCYTES # (AUTO) 1.2 X10'3 (1.1-4.8); LYMPHOCYTES % (AUTO) 19.9 % (21-51); MEAN CORPUSCULAR HEMOGLOBIN 37.2 PG (27.0-31.0); MEAN CORPUSCULAR HGB CONC 34.5 g/dL (33.0-36.5); MEAN CORPUSCULAR VOLUME 107.8 FL (78-98); MEAN PLATELET VOLUME 8.4 FL (7.4-10.4); MONOCYTES # (AUTO) 1.1 X10'3 (0-0.9); MONOCYTES % (AUTO) 18.6 % (2-12); NEUTROPHILS # (AUTO) 3.4 X10'3 (1.8-7.7); NEUTROPHILS % (AUTO) 57.9 % (42-75); PLATELET COUNT 133 X10'3 (140-440); RED BLOOD COUNT 3.75 X10'6 (4.70-6.10); WHITE BLOOD COUNT 5.9 X10'3 (4.5-11.0)
[2020-12-03 07:54] LABS: ALANINE AMINOTRANSFERASE 39 U/L (12-78); ALBUMIN 1.6 G/DL (3.4-5.0); ALBUMIN/GLOBULIN RATIO 0.4 (1.1-1.5); ALKALINE PHOSPHATASE 126 IU/L (46-116); ANION GAP 6 (8-16); ASPARTATE AMINO TRANSFERASE 117 U/L (10-37); BILIRUBIN,TOTAL 7.2 MG/DL (0.1-1.0); BLOOD UREA NITROGEN 34 MG/DL (7-18); CALCIUM 7.9 MG/DL (8.5-10.1); CHLORIDE 103 MMOL/L (99-107); CREATININE 1.03 MG/DL (0.60-1.10); GLUCOSE 83 MG/DL (70-104); POTASSIUM 3.5 MMOL/L (3.5-5.1); SODIUM 139 MMOL/L (135-145); TOTAL CARBON DIOXIDE 29.7 MMOL/L (24-32); TOTAL PROTEIN 5.2 G/DL (6.4-8.2); eGFR 73 ML/MIN
[2020-12-03] MEDS: K and/or MAG REPLACEMENT MC SCH ×2 (08:00→20:27)
--- NOTE | 2020-12-03 09:10 | NUR ---
PAGER ID: [phone] MESSAGE: Denys Mooney Martín Urine is dark ORANGE. Low output. Condom cath. Do you want this pt. on any fluids? Melody [phone]
[2020-12-03] MEDS: folic acid 1mg tablet PO SCH (11:12)
[2020-12-03 11:13] LABS: AFP,SERUM, TUMOR MARKER 2.3 ng/mL (0.0-8.3)
[2020-12-03 11:14] LABS: HBSAG SCREEN Negative (Negative); HEP A AB, IGM Negative (Negative); HEPATITIS C ANTIBODY 3.7 s/co ratio (0.0-0.9)
[2020-12-03] MEDS: levoTHYROXINE 25mcg tablet PO SCH (11:15)
[2020-12-03] MEDS: thiamine 100mg tablet PO SCH (11:15)
[2020-12-03] MEDS: lisinopril 10 MG tablet PO SCH (11:15)
[2020-12-03] MEDS: multivitamins, therapeutics tablet PO SCH (11:16)
[2020-12-03] MEDS: docusate sod 100mg capsule PO SCH ×2 (11:16→20:00)
[2020-12-03] MEDS: pantoprazole 40mg Tablet.DR PO SCH (11:16)
[2020-12-03] MEDS: normal saline 1000ml 1,000 ML IV SCH ×3 (12:51→22:01)
--- NOTE | 2020-12-03 16:05 | NUR ---
Rectal tube remove r/t no output and pt. discomfort. Pt tolerated procedure well.
--- NOTE | 2020-12-03 18:31 | NUR ---
Problems reprioritized. Patient report given, questions answered & plan of care reviewed with Sharon CALDWELL.
--- NOTE | 2020-12-03 18:43 | NUR ---
Patient in room MED 314. I have received report from CHEMA CALDWELL and had the opportunity to ask questions and assume patient care.
[2020-12-03] MEDS: potassium Cl 20 mEq SR tablet PO PRN (20:18)
[2020-12-03] MEDS: HYDROcodone/acetaminophen 5mg/325mg tablet PO PRN (20:19)
[2020-12-04 02:00] VITALS: BP 110/86
[2020-12-04 06:00] VITALS: BP 103/70
--- NOTE | 2020-12-04 06:07 | NUR ---
Problems reprioritized. Patient report given, questions answered & plan of care reviewed with MARINA TONG RN.
[2020-12-04 07:19] LABS: ALANINE AMINOTRANSFERASE 35 U/L (12-78); ALBUMIN 1.5 G/DL (3.4-5.0); ALBUMIN/GLOBULIN RATIO 0.4 (1.1-1.5); ALKALINE PHOSPHATASE 119 IU/L (46-116); ANION GAP 5 (8-16); ASPARTATE AMINO TRANSFERASE 97 U/L (10-37); BASOPHILS # (AUTO) 0.1 X10'3 (0-0.2); BILIRUBIN,TOTAL 5.8 MG/DL (0.1-1.0); BLOOD UREA NITROGEN 25 MG/DL (7-18); BUN/CREATININE RATIO 27.5 (5.4-32.0); CALCIUM 7.4 MG/DL (8.5-10.1); CHLORIDE 107 MMOL/L (99-107); CREATININE 0.91 MG/DL (0.60-1.10); GLUCOSE 82 MG/DL (70-104); MAGNESIUM 1.9 MG/DL (1.5-2.4); MONOCYTES # (AUTO) 0.9 X10'3 (0-0.9); POTASSIUM 3.7 MMOL/L (3.5-5.1); SODIUM 140 MMOL/L (135-145); TOTAL CARBON DIOXIDE 27.6 MMOL/L (24-32); TOTAL PROTEIN 4.9 G/DL (6.4-8.2); eGFR 84 ML/MIN
[2020-12-04 07:21] LABS: BASOPHILS % (AUTO) 2.8 % (0-1); EOSINOPHILS # (AUTO) 0.2 X10'3 (0-0.9); EOSINOPHILS % (AUTO) 3.4 % (0-6); HEMATOCRIT 37.9 % (42.0-52.0); HEMOGLOBIN 12.9 g/dl (14.0-17.9); LYMPHOCYTES % (AUTO) 20.6 % (21-51); MEAN CORPUSCULAR HEMOGLOBIN 37.2 PG (27.0-31.0); MEAN CORPUSCULAR HGB CONC 34.2 g/dL (33.0-36.5); MEAN PLATELET VOLUME 8.2 FL (7.4-10.4); MONOCYTES % (AUTO) 18.2 % (2-12); NEUTROPHILS # (AUTO) 2.7 X10'3 (1.8-7.7); PLATELET COUNT 130 X10'3 (140-440); RED BLOOD COUNT 3.48 X10'6 (4.70-6.10); RED CELL DISTRIBUTION WIDTH 15.7 % (11.5-14.5)
[2020-12-04] MEDS: docusate sod 100mg capsule PO SCH ×3 (07:30→20:00)
[2020-12-04] MEDS: levoTHYROXINE 25mcg tablet PO SCH (07:30)
[2020-12-04] MEDS: pantoprazole 40mg Tablet.DR PO SCH (07:30)
[2020-12-04] MEDS: thiamine 100mg tablet PO SCH (07:30)
[2020-12-04] MEDS: multivitamins, therapeutics tablet PO SCH (07:31)
[2020-12-04] MEDS: lisinopril 10 MG tablet PO SCH (07:31)
[2020-12-04] MEDS: folic acid 1mg tablet PO SCH (07:31)
[2020-12-04] MEDS: K and/or MAG REPLACEMENT MC SCH ×2 (07:32→20:00)
[2020-12-04] MEDS: lactulose 20gm/30ml cup PO SCH ×2 (07:47→20:00)
[2020-12-04 09:19] LABS: ANISOCYTOSIS 1+; TOTAL CELLS COUNTED 100
[2020-12-04 09:20] LABS: PLATELET ESTIMATE DECREASED
[2020-12-04 09:21] LABS: HYPOCHROMASIA 1+; POLYCHROMASIA 1+; TARGET CELLS 1+
[2020-12-04 10:00] VITALS: BP 110/77
--- NOTE | 2020-12-04 12:34 | NUR ---
PAGER ID: [phone] MESSAGE: [phone] pt Vinicio. Was taking Effexor 25 mg/day but stopped and started drinking prior to admit. Daughter wants to know if it will be restarted while he is here? - Alicja [phone]
--- NOTE | 2020-12-04 14:16 | NUR ---
Rob Consult: Rob Tucker; skin intact per EMR. Addendum: 12/04/20 at [address] Amended: Links added.
[2020-12-04 15:00] VITALS: BP 128/80
[2020-12-04 18:00] VITALS: BP 112/81
--- NOTE | 2020-12-04 18:27 | NUR ---
Patient in room MED 314. I have received report from MARINA CALDWELL and had the opportunity to ask questions and assume patient care.
[2020-12-04] MEDS: HYDROcodone/acetaminophen 5mg/325mg tablet PO PRN (19:28)
[2020-12-04 22:00] VITALS: BP 116/70
[2020-12-05 02:00] VITALS: BP 115/80
--- NOTE | 2020-12-05 05:56 | NUR ---
Problems reprioritized. Patient report given, questions answered & plan of care reviewed with SHIRA CALDWELL.
[2020-12-05 06:00] VITALS: BP 115/81
--- NOTE | 2020-12-05 06:20 | NUR ---
Patient in room MED 314. I have received report from PAULETTE Herrera and had the opportunity to ask questions and assume patient care.
[2020-12-05 07:23] LABS: ALANINE AMINOTRANSFERASE 42 U/L (12-78); ALBUMIN 1.6 G/DL (3.4-5.0); ALBUMIN/GLOBULIN RATIO 0.4 (1.1-1.5); ANION GAP 10 (8-16); ASPARTATE AMINO TRANSFERASE 99 U/L (10-37); BILIRUBIN,TOTAL 5.1 MG/DL (0.1-1.0); BLOOD UREA NITROGEN 21 MG/DL (7-18); BUN/CREATININE RATIO 26.6 (5.4-32.0); CALCIUM 7.8 MG/DL (8.5-10.1); CHLORIDE 106 MMOL/L (99-107); CREATININE 0.79 MG/DL (0.60-1.10); GLUCOSE 84 MG/DL (70-104); POTASSIUM 4.2 MMOL/L (3.5-5.1); SODIUM 141 MMOL/L (135-145); TOTAL CARBON DIOXIDE 25.4 MMOL/L (24-32); TOTAL PROTEIN 5.4 G/DL (6.4-8.2); eGFR > 90 ML/MIN
[2020-12-05 07:25] LABS: BASOPHILS # (AUTO) 0.1 X10'3 (0-0.2); BASOPHILS % (AUTO) 1.8 % (0-1); EOSINOPHILS # (AUTO) 0.1 X10'3 (0-0.9); EOSINOPHILS % (AUTO) 2.8 % (0-6); HEMATOCRIT 39.2 % (42.0-52.0); HEMOGLOBIN 13.2 g/dl (14.0-17.9); LYMPHOCYTES # (AUTO) 1.1 X10'3 (1.1-4.8); MEAN CORPUSCULAR HEMOGLOBIN 36.8 PG (27.0-31.0); MEAN CORPUSCULAR HGB CONC 33.7 g/dL (33.0-36.5); MEAN CORPUSCULAR VOLUME 109.1 FL (78-98); MEAN PLATELET VOLUME 8.3 FL (7.4-10.4); MONOCYTES % (AUTO) 20.8 % (2-12); NEUTROPHILS # (AUTO) 2.5 X10'3 (1.8-7.7); NEUTROPHILS % (AUTO) 51.6 % (42-75); PLATELET COUNT 132 X10'3 (140-440); RED BLOOD COUNT 3.59 X10'6 (4.70-6.10); RED CELL DISTRIBUTION WIDTH 15.6 % (11.5-14.5); WHITE BLOOD COUNT 4.9 X10'3 (4.5-11.0)
[2020-12-05 07:52] LABS: ALKALINE PHOSPHATASE 129 IU/L (46-116)
[2020-12-05] MEDS: K and/or MAG REPLACEMENT MC SCH ×2 (08:00→20:20)
[2020-12-05 09:49] LABS: TOTAL CELLS COUNTED 100
[2020-12-05 09:50] LABS: ANISOCYTOSIS 1+; PLATELET ESTIMATE DECREASED
[2020-12-05 10:00] VITALS: BP 118/84
[2020-12-05] MEDS: folic acid 1mg tablet PO SCH (10:03)
[2020-12-05] MEDS: multivitamins, therapeutics tablet PO SCH (10:03)
[2020-12-05] MEDS: venlafaxine 25mg tablet PO SCH (10:03)
[2020-12-05] MEDS: thiamine 100mg tablet PO SCH (10:03)
[2020-12-05] MEDS: docusate sod 100mg capsule PO SCH ×2 (10:04→20:00)
[2020-12-05] MEDS: lisinopril 10 MG tablet PO SCH (10:04)
[2020-12-05] MEDS: pantoprazole 40mg Tablet.DR PO SCH (10:05)
[2020-12-05] MEDS: lactulose 20gm/30ml cup PO SCH ×2 (10:06→20:35)
[2020-12-05] MEDS: HYDROcodone/acetaminophen 5mg/325mg tablet PO PRN ×3 (10:06→20:35)
[2020-12-05] MEDS: levoTHYROXINE 25mcg tablet PO SCH (10:06)
[2020-12-05 14:00] VITALS: BP 128/86
--- NOTE | 2020-12-05 18:30 | NUR ---
Problems reprioritized. Patient report given, questions answered & plan of care reviewed with PAULETTE Jewell.
[2020-12-05 19:30] VITALS: BP 96/70
--- NOTE | 2020-12-05 21:47 | NUR ---
pt states hands are steady enough "i can pour my own water without spilling all over the place." educated on alcohol and liver disease. "Is liver injury permanent?" suggested pt ask MD as unsure of extent of liver damage. will print education on liver and ETOH for patient to read
[2020-12-06 00:30] VITALS: BP 110/83
--- NOTE | 2020-12-06 00:32 | NUR ---
pt agiatated about "messing the bed again! This is stupid. I'm about ready to walk out of here. I'm done with this sh*#". recognized frustration, explained discharge plan and treatment that is helping with removal of toxins from body. pt unable to hear education. will print education. pt calmed down and appreciated "you have a calm spirit, thank you." will continue to reassess for anxiety. bed alarm active.
[2020-12-06 02:15] VITALS: BP 108/81
[2020-12-06] MEDS: temazepam 15mg capsule PO PRN ×2 (02:25→20:49)
[2020-12-06 06:05] LABS: BASOPHILS # (AUTO) 0.1 X10'3 (0-0.2); BASOPHILS % (AUTO) 2.2 % (0-1); EOSINOPHILS # (AUTO) 0.1 X10'3 (0-0.9); EOSINOPHILS % (AUTO) 2.4 % (0-6); HEMOGLOBIN 12.7 g/dl (14.0-17.9); LYMPHOCYTES # (AUTO) 1.2 X10'3 (1.1-4.8); LYMPHOCYTES % (AUTO) 24.4 % (21-51); MEAN CORPUSCULAR HEMOGLOBIN 36.8 PG (27.0-31.0); MEAN CORPUSCULAR HGB CONC 33.5 g/dL (33.0-36.5); MEAN CORPUSCULAR VOLUME 109.7 FL (78-98); MEAN PLATELET VOLUME 8.5 FL (7.4-10.4); MONOCYTES # (AUTO) 0.9 X10'3 (0-0.9); MONOCYTES % (AUTO) 17.4 % (2-12); NEUTROPHILS # (AUTO) 2.7 X10'3 (1.8-7.7); NEUTROPHILS % (AUTO) 53.6 % (42-75); PLATELET COUNT 141 X10'3 (140-440); RED BLOOD COUNT 3.46 X10'6 (4.70-6.10); RED CELL DISTRIBUTION WIDTH 15.1 % (11.5-14.5)
[2020-12-06 06:20] LABS: ALANINE AMINOTRANSFERASE 38 U/L (12-78); ALBUMIN 1.5 G/DL (3.4-5.0); ALKALINE PHOSPHATASE 111 IU/L (46-116); ANION GAP 6 (8-16); ASPARTATE AMINO TRANSFERASE 87 U/L (10-37); BILIRUBIN,TOTAL 4.3 MG/DL (0.1-1.0); BLOOD UREA NITROGEN 20 MG/DL (7-18); CALCIUM 7.6 MG/DL (8.5-10.1); CHLORIDE 105 MMOL/L (99-107); CREATININE 0.74 MG/DL (0.60-1.10); GLUCOSE 88 MG/DL (70-104); MAGNESIUM 1.9 MG/DL (1.5-2.4); POTASSIUM 3.4 MMOL/L (3.5-5.1); SODIUM 138 MMOL/L (135-145); TOTAL CARBON DIOXIDE 27.5 MMOL/L (24-32); eGFR > 90 ML/MIN
--- NOTE | 2020-12-06 06:27 | NUR ---
reported to days. noted pt resting w/o distress. anticipates discharge today.
[2020-12-06 06:33] LABS: ALBUMIN/GLOBULIN RATIO 0.4 (1.1-1.5); TOTAL PROTEIN 5.1 G/DL (6.4-8.2)
--- NOTE | 2020-12-06 06:47 | NUR ---
Patient in room MED 308. I have received report from Best CALDWELL and had the opportunity to ask questions and assume patient care.
[2020-12-06 06:52] LABS: TOTAL CELLS COUNTED 100
[2020-12-06 06:53] VITALS: BP 117/75
[2020-12-06 06:53] LABS: PLATELET ESTIMATE NORMAL
[2020-12-06] MEDS: K and/or MAG REPLACEMENT MC SCH ×2 (08:00→20:51)
[2020-12-06] MEDS: multivitamins, therapeutics tablet PO SCH (08:02)
[2020-12-06] MEDS: pantoprazole 40mg Tablet.DR PO SCH (08:03)
[2020-12-06] MEDS: thiamine 100mg tablet PO SCH (08:03)
[2020-12-06] MEDS: venlafaxine 25mg tablet PO SCH (08:03)
[2020-12-06] MEDS: folic acid 1mg tablet PO SCH (08:04)
[2020-12-06] MEDS: lisinopril 10 MG tablet PO SCH (08:05)
[2020-12-06] MEDS: docusate sod 100mg capsule PO SCH ×2 (08:05→20:00)
[2020-12-06] MEDS: levoTHYROXINE 25mcg tablet PO SCH (08:06)
[2020-12-06] MEDS: lactulose 20gm/30ml cup PO SCH ×2 (09:01→20:52)
[2020-12-06] MEDS: HYDROcodone/acetaminophen 5mg/325mg tablet PO PRN (09:07)
--- NOTE | 2020-12-06 10:06 | NUR ---
Reassessment: Pt now documented to be A/O x 4. Pt continues on 2 g Na restricted diet with 1L fluid restriction, though PO intake fluctuates now averaging 50-75% PO intake however up to 100% PO intake at most recent meal. Pt with no tremors per fitness coach. [facility] 12/05 receiving routine Colace and Lactulose. No nutrition intervention implemented at this time. Will continue to follow and make recommendations as appropriate. Recommendations: 1) Continue 2 g Na restricted diet with 1L fluid restriction per MD 2) Monitor need for additional protein 3) Continue routine Thiamine, Folic acid, and MVI for EtOH, elevated MCV 4) Routine bowel care 5) Scaled weights per rx Addendum: 12/06/20 at [address] Amended: Links added.
--- NOTE | 2020-12-06 15:38 | NUR ---
Spoke with the MD and notified that family wanted to speak to her, she instructed to notify the daughter to be in the room at 1100 12/07/20. Daughter was agreeable and will be her for the meeting.
[2020-12-06 18:00] VITALS: BP 106/75
--- NOTE | 2020-12-06 18:00 | NUR ---
Patient in room MED 314. I have received report from PAULETTE Adams and had the opportunity to ask questions and assume patient care.
--- NOTE | 2020-12-06 18:15 | NUR ---
Patient in room MED 307. I have received report from Elida CALDWELL and had the opportunity to ask questions and assume patient care.
[2020-12-06] MEDS ORDERED: magnesium Cl slow-release 64mg tablet PO PRN (19:25)
[2020-12-06] MEDS ORDERED: potassium Cl 40MEQ/1/2NS 520ml 520 ML IV PRN (19:25)
[2020-12-06] MEDS ORDERED: potassium Cl 20 mEq SR tablet PO PRN (19:25)
[2020-12-06] MEDS: mineral oil/petrolatum, white cream 113gm jar TP SCH (20:00)
[2020-12-06] MEDS: potassium Cl 20 mEq SR tablet PO PRN (20:49)
--- NOTE | 2020-12-06 22:00 | NUR ---
Pt refused V/S at 2200
[2020-12-07 02:00] VITALS: BP 108/73
[2020-12-07 06:30] VITALS: BP 116/76
[2020-12-07 06:44] LABS: POTASSIUM 3.5 MMOL/L (3.5-5.1)
[2020-12-07] MEDS: mineral oil/petrolatum, white cream 113gm jar TP SCH (08:00)
[2020-12-07] MEDS: docusate sod 100mg capsule PO SCH (08:00)
[2020-12-07] MEDS: K and/or MAG REPLACEMENT MC SCH (08:00)
[2020-12-07] MEDS: venlafaxine 25mg tablet PO SCH (09:24)
[2020-12-07] MEDS: potassium Cl 20 mEq SR tablet PO PRN (09:25)
[2020-12-07] MEDS: lisinopril 10 MG tablet PO SCH (09:25)
[2020-12-07] MEDS: levoTHYROXINE 25mcg tablet PO SCH (09:25)
[2020-12-07] MEDS: pantoprazole 40mg Tablet.DR PO SCH (09:26)
[2020-12-07] MEDS: multivitamins, therapeutics tablet PO SCH (09:26)
[2020-12-07] MEDS: folic acid 1mg tablet PO SCH (09:27)
[2020-12-07] MEDS: lactulose 20gm/30ml cup PO SCH (09:27)
[2020-12-07] MEDS: thiamine 100mg tablet PO SCH (09:28)
--- NOTE | 2020-12-07 11:26 | NUR ---
PAGER ID: [phone] MESSAGE: Re: Denys Mooney Room 314. Pt's daughter is in the room waiting to speak with you. Thanks, Pat [phone]
[2020-12-07 12:00] VITALS: BP 113/47
[2020-12-07] MEDS ORDERED: LEVO25TA7 PO (12:11)
[2020-12-07] MEDS ORDERED: VENL25TA48 PO (12:11)
[2020-12-07] MEDS ORDERED: folic acid tablet PO (12:11)
[2020-12-07] MEDS ORDERED: LISI10TA27 PO (12:11)
[2020-12-07] MEDS ORDERED: LACT10SO32 PO (12:11)
[2020-12-07] MEDS ORDERED: thiamine tablet PO (12:11)
[2020-12-07] MEDS ORDERED: PANT40TA54 PO (12:11)
[2020-12-07 13:17] LABS: ALANINE AMINOTRANSFERASE 46 U/L (12-78); ALBUMIN 2.1 G/DL (3.4-5.0); ALKALINE PHOSPHATASE 148 IU/L (46-116); ASPARTATE AMINO TRANSFERASE 99 U/L (10-37); BILIRUBIN,DIRECT 3.9 MG/DL (0-0.3); BILIRUBIN,TOTAL 4.8 MG/DL (0.1-1.0)
[2020-12-07 13:18] LABS: ALBUMIN/GLOBULIN RATIO 0.4 (1.1-1.5); TOTAL PROTEIN 6.9 G/DL (6.4-8.2)
[2020-12-07] MEDS ORDERED: FURO-150 PO (13:49)
--- NOTE | 2020-12-08 13:50 | NUR ---
CASE MANAGEMENT DISCHARGE FOLLOW UP: T/c to pt, no answer, left message requesting callback.
== END 2020-12-07 14:30 | disposition home or self-care (01) | DRG 279 ==
LOC: ER 18:08 → ED HOLD 11-28 01:23 → MED 3N 11-28 07:07
PROVIDERS: ADMIT Family Medicine; ATTEND Family Medicine
PROC: 0W9G3ZX Drainage of Peritoneal Cavity, Percutaneous Approach, Diagnostic (ICD-10-PCS; principal; 2020-11-30)
DX: K72.90 Hepatic failure, unspecified without coma (principal); G93.41 Metabolic encephalopathy; N17.9 Acute kidney failure, unspecified; D68.9 Coagulation defect, unspecified; D69.6 Thrombocytopenia, unspecified; E87.1 Hypo-osmolality and hyponatremia; I11.0 Hypertensive heart disease with heart failure; I50.32 Chronic diastolic (congestive) heart failure; K70.11 Alcoholic hepatitis with ascites; K70.31 Alcoholic cirrhosis of liver with ascites; E03.9 Hypothyroidism, unspecified; F32.9 Major depressive disorder, single episode, unspecified; I25.10 Atherosclerotic heart disease of native coronary artery without angina pectoris; F10.11 Alcohol abuse, in remission; K76.6 Portal hypertension; M54.9 Dorsalgia, unspecified; G89.29 Other chronic pain; Z91.14 Patient's other noncompliance with medication regimen; Z79.01 Long term (current) use of anticoagulants; Z79.899 Other long term (current) drug therapy; Z86.711 Personal history of pulmonary embolism; Z87.442 Personal history of urinary calculi
CPT/HCPCS: 36415; 49083; 70450; 70551; 71045; 71275; 76700; 76937; 80053; 80061; 80074; 80076; 80305; 80320; 82042; 82103; 82140; 82550; 82945; 82948; 83036; 83615; 83690; 83735; 83880; 84100; 84132; 84157; 84439; 84443; 84480; 84484; 85007; 85025; 85610; 87070; 87081; 89051; 93005; 93306; 93971; 93975; 96374; 97110; 97116; 97162; 97530; 99285; G0378; J1940; J2060; J2270; J3411; J7030; Q9967

== ENCOUNTER 2020-12-13 07:37 | Day surgery (SDC) | payer MEDICAID ==
[~2020-12-13] VITALS: Ht 175.3 cm; Wt 102.9 kg
[~2020-12-13 07:37] MED LIST changes: +FURO-150 PO; -HYDR-3717 PO; +LACT10SO32 PO; +LEVO25TA7 PO; +LISI10TA27 PO; +PANT40TA54 PO; -RIVA15TA PO; +folic acid tablet PO; +thiamine tablet PO
[2020-12-13] MEDS ORDERED: albumin 25% 100mL bottle x 1 IV PRN (08:00)
[2020-12-13 08:03] VITALS: BP 107/69
[2020-12-13] MEDS ORDERED: VENL25TA48 PO (08:28)
[2020-12-13] MEDS ORDERED: LISI20TA28 PO (08:28)
[2020-12-13] MEDS ORDERED: LACT10SO3 PO (08:28)
[2020-12-13] MEDS ORDERED: THIA100T70 PO (08:28)
[2020-12-13] MEDS ORDERED: FURO-150 PO (08:28)
[2020-12-13] MEDS ORDERED: FOLI0.4T6 PO (08:28)
[2020-12-13] MEDS ORDERED: LEVO25TA2 PO (08:28)
[2020-12-13 08:45] VITALS: BP 114/62
[2020-12-13 09:00] VITALS: BP 114/75
[2020-12-13 09:15] VITALS: BP 116/66
[2020-12-13 10:22] VITALS: BP 121/75
== END 2020-12-13 10:25 | disposition home or self-care (01) ==
LOC: SSTAY O 07:37
PROVIDERS: ATTEND Radiology Vascular & Interventional Radiology
DX: R18.8 Other ascites (principal); K70.31 Alcoholic cirrhosis of liver with ascites; I10 Essential (primary) hypertension
CPT/HCPCS: 49083; P9047

== ENCOUNTER 2020-12-20 07:18 | Day surgery (SDC) | payer MEDICAID ==
[~2020-12-20] VITALS: Ht 175.3 cm; Wt 97.8 kg
[~2020-12-20 07:18] MED LIST changes: +FOLI0.4T6 PO; +LACT10SO3 PO; -LACT10SO32 PO; +LEVO25TA2 PO; -LEVO25TA7 PO; -LISI10TA27 PO; +LISI20TA28 PO; -PANT40TA54 PO; +THIA100T70 PO; -folic acid tablet PO; -thiamine tablet PO
[2020-12-20] MEDS ORDERED: albumin 25% 100mL bottle x 1 IV PRN (07:40)
[2020-12-20] MEDS ORDERED: normal saline 1000ml 1,000 ML IV PRN (07:40)
[2020-12-20 07:41] VITALS: BP 132/88
[2020-12-20 09:25] VITALS: BP 130/82
[2020-12-20 09:39] VITALS: BP 126/81
== END 2020-12-20 09:40 | disposition home or self-care (01) ==
LOC: SSTAY O 07:18
PROVIDERS: ATTEND Radiology Vascular & Interventional Radiology
DX: R18.8 Other ascites (principal); I10 Essential (primary) hypertension; G89.29 Other chronic pain; K72.90 Hepatic failure, unspecified without coma; K74.60 Unspecified cirrhosis of liver; D69.6 Thrombocytopenia, unspecified; E87.1 Hypo-osmolality and hyponatremia; K76.6 Portal hypertension; F12.90 Cannabis use, unspecified, uncomplicated; D68.9 Coagulation defect, unspecified; Z86.711 Personal history of pulmonary embolism; Z87.442 Personal history of urinary calculi; Z98.890 Other specified postprocedural states; Z79.899 Other long term (current) drug therapy
CPT/HCPCS: 49083

== ENCOUNTER 2021-01-03 08:06 | Day surgery (SDC) | payer MEDICAID ==
[~2021-01-03] VITALS: Ht 175.3 cm; Wt 95.6 kg
[2021-01-03 08:20] VITALS: BP 126/74
[2021-01-03] MEDS ORDERED: normal saline 1000ml 1,000 ML IV PRN (08:25)
[2021-01-03] MEDS ORDERED: albumin 25% 100mL bottle x 1 IV PRN (08:25)
[2021-01-03 09:10] VITALS: BP 107/66
--- NOTE | 2021-01-03 09:10 | NUR ---
Patient with ultrasound only d/t small amount of fluid.
== END 2021-01-03 09:10 | disposition home or self-care (01) ==
LOC: SSTAY O 08:06
PROVIDERS: ATTEND Radiology Vascular & Interventional Radiology
DX: R18.8 Other ascites (principal); Z53.8 Procedure and treatment not carried out for other reasons; R14.0 Abdominal distension (gaseous); K72.90 Hepatic failure, unspecified without coma; K74.60 Unspecified cirrhosis of liver; I10 Essential (primary) hypertension; G89.29 Other chronic pain; D69.6 Thrombocytopenia, unspecified; E87.1 Hypo-osmolality and hyponatremia; K76.6 Portal hypertension; Z98.890 Other specified postprocedural states; Z72.89 Other problems related to lifestyle; F12.90 Cannabis use, unspecified, uncomplicated; Z79.899 Other long term (current) drug therapy; Z87.442 Personal history of urinary calculi; Z86.711 Personal history of pulmonary embolism
CPT/HCPCS: 76705